=== PATIENT | male | born 1985 | race Caucasian/White ===

== ENCOUNTER → 2020-10-27 | Outpatient (CLI) | payer BC ==
[~2020-10-27] MED LIST: CIPRO 500MG TA500 MG PO; NO HOME MEDICATIONS; NORCO 325 MG-51 TAB PO
== END ==
LOC: COL.RAD 08:12
DX: H21.569 Pupillary abnormality, unspecified eye (principal)
CPT/HCPCS: A9585

== ENCOUNTER → 2020-11-10 | Outpatient (CLI) | payer BC | LOC: COL.RAD 10:11 | DX: R10.11 Right upper quadrant pain (principal) ==

== ENCOUNTER → 2021-01-27 | Outpatient (CLI) | payer BC | LOC: COL.RAD 08:30 | DX: R10.11 Right upper quadrant pain (principal) | CPT/HCPCS: A9537; J2805 ==

== ENCOUNTER → 2023-06-19 | Outpatient (CLI) | payer BC ==
[~2023-06-19] MED LIST changes: +AMOXICILLIN 8751 TAB PO; +BENTYL 10MG10 MG/CAP PO; +Iohexol 300 - 100 ML VIAL IV ONE; +KERENDIA10 MG PO; +NS 100 ML IV SCH; +PEPCID 20MG TAB20 MG PO; +PRIL40 PO; +ZOFRAN 4MG T4 MG/TAB PO; +ZOFRAN ODT4 MG PO
== END ==
LOC: COL.RAD 13:30
DX: M54.2 Cervicalgia (principal); R42 Dizziness and giddiness
CPT/HCPCS: Q9967

== ENCOUNTER 2023-09-12 16:03 | Emergency (ER) | payer BC ==
[~2023-09-12] VITALS: Ht 188 cm; Wt 95.5 kg
[2023-09-12 16:03] VITALS: TEMP 98.4
[~2023-09-12 16:03] MED LIST changes: -Iohexol 300 - 100 ML VIAL IV ONE; -NS 100 ML IV SCH
[2023-09-12] MEDS ORDERED: droPERidol 2.5 MG/ML 2 ML VIAL IV ONE (18:45)
[2023-09-12] MEDS ORDERED: NS 1,000 ML IV ONE (18:45)
[2023-09-12 18:54] LABS: BASO % 0.6 % (0.0-2.0); EOS % 0.1 % (0.0-4.0); GRAN % 73.7 % (42.2-75.2); HEMATOCRIT 42.5 % (42.0-52.0); HEMOGLOBIN 15.2 g/dl (13.5-18.0); LYMPH # 1.3 K/mm3 (1.2-3.4); LYMPH % 18.3 % (20.0-51.0); MEAN CELL VOLUME 95 fl (80.0-100.0); MEAN CORPUSCULAR HEMOGLOBIN 34 pg (27-31); MEAN CORPUSCULAR HGB CONC 36 g/dl (33.0-37.0); MEAN PLATELET VOLUME 8.6 fl (7.4-10.4); MONO # 0.5 K/mm3 (0.1-0.6); PLATELET COUNT 213 K/mm3 (130-400); RED BLOOD COUNT 4.47 M/mm3 (4.20-5.60)
[2023-09-12 19:09] LABS: ALBUMIN 3.9 g/dL (3.5-5.0); BILIRUBIN,TOTAL 1.2 mg/dL (0.2-1.2); CALCIUM 8.7 mg/dL (8.4-10.2); CREATININE, serum 0.72 mg/dL (0.72-1.25); TOTAL PROTEIN 7.5 g/dl (6.2-8.1)
[2023-09-12 19:31] LABS: TRICYCLIC ANTIDEPRESS URINE NEGATIVE (NEGATIVE)
[2023-09-12] MEDS ORDERED: Iohexol 300 - 100 ML VIAL IV ONE (19:45)
[2023-09-12] MEDS ORDERED: NS 100 ML IV ONE (19:47)
[2023-09-12] MEDS ORDERED: Home Ondansetron ODT 4 MG #2 ODT/PACK PO ONE (20:30)
[2023-09-12 20:33] VITALS: BP 140/95; PULSE 68
== END 2023-09-12 20:33 | disposition home or self-care (01) ==
LOC: COL.ER 16:03
PROVIDERS: Physician Assistant
DX: K20.90 Esophagitis, unspecified without bleeding (principal); F10.120 Alcohol abuse with intoxication, uncomplicated; Y90.8 Blood alcohol level of 240 mg/100 ml or more
CPT/HCPCS: J1790; J7030; Q9967